=== PATIENT | female | born 2000 | race Caucasian/White ===

== ENCOUNTER 2022-02-06 12:49 | Outpatient (REF) | payer OTHER, MEDICAID, SELFPAY ==
[2022-02-07 12:51] LABS: Influenza A PCR POSITIVE (Negative); Influenza B PCR NEGATIVE (Negative); Resp Syncy Virus RNA Qual PCR NEGATIVE (Negative); SARS COV2 PCR INHOUSE NEGATIVE (Negative)
== END 2022-02-06 12:50 | disposition home or self-care (01) ==
LOC: HO.LAB 12:49
PROVIDERS: Visit Provider Family Medicine
DX: Z20.822 Contact with and (suspected) exposure to COVID-19 (principal); B34.9 Viral infection, unspecified
CPT/HCPCS: 0241U

== ENCOUNTER 2023-05-25 10:00 | Outpatient (RCR) | payer OTHER, MEDICAID, SELFPAY ==
--- NOTE | 2023-05-16 12:47 | MHC.PT.EP ---
[facility] [place] Office [place] Office [place] Office [address] Amy Romero [address] [phone] F: [phone] F: [phone] F: [phone] F: [phone] Physical Therapy Plan of Care Date of Evaluation: Date of Surgery: Diagnosis: LBP (MD Dx) Due to core weakness/instability after giving 04/28 Assessment: Patient is a 23 y.o. female who is referred to PT by Dr. Maria C Isaac MD with Dx of low back pain. Upon assessment her LBP appears due to abdominal weakness and instability after giving 1 year ago. Patient impairments include poor posture, poor body mechanics with squat and lifting, painful ROM, hip and core/abdominal weakness. 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 Patient will benefit from skilled PT to address aforementioned impairments and functional limitations to meet established goals. Frequency and Duration: The patient will be seen 1x/week for 4 weeks Short Term Goals: 2 weeks Patient demonstrates consistency and independence with HEP to self manage symptoms. Patient presents without slouched sitting, to reduce low back strain. Alf Goals: 4 weeks Patient presents with increased glute med strength 4+/5 to be able to stand for shift at work without LBP. Patient presents with increased TA strength 5/5 to be able to lift/carry daughter without LBP. Treatment Plan: Modalities to reduce pain, spasms and effusion. Manual therapy to restore motion and function. Therapeutic exercise to improve strength and flexibility. Neuromuscular re-education for posture and balance. Therapeutic activities to return to functional activities of daily living. Electronically signed by: César Kearney, PT, DPT Please sign and return to therapist. Thank you for your referral.
--- NOTE | 2023-07-17 13:04 | MHC.PT.DC ---
[facility] [place] Office [place] Office [place] Office [address] Amy Romero [address] [phone] F: [phone] F: [phone] F: [phone] F: [phone] Physical Therapy Discharge Report Diagnosis: LBP (MD [place]) Due to core weakness/instability after giving 04/28 Date of Surgery: Date of Evaluation: 05/16/23 Date of Discharge: 07/17/23 Treatments to Date: 2 Cancellations to Date: 0 No Shows to Date: Discharge Status: Visit Non-compliance Discharge Summary: Patient was only treated for 2 PT sessions and then she ceased attending PT on her own accord. Difficulty determining effectiveness on PT condition due to limited session. She is discharged from PT at this time. Electronically signed by: César Kearney, PT, DPT Please sign and return to therapist. Thank you for your referral.
== END 2023-07-17 13:06 | disposition home or self-care (01) ==
LOC: HO.PT 10:00
PROVIDERS: PCP Internal Medicine; Visit Provider Nurse Practitioner Family
DX: M54.50 Low back pain, unspecified (principal)
CPT/HCPCS: 97110; 97140; 97161

== ENCOUNTER 2024-04-09 11:10 | Outpatient (AMB) | payer OTHER, MEDICAID, SELFPAY ==
[2024-04-09 11:11] VITALS: PULSE 57; O2SAT 98; BMI 24.3
--- NOTE | 2024-04-09 11:11 | A.OFFPC_ITS ---
Vital Signs 04/09/24 11:11 Height 5 ft 5 in Weight 146 lb BMI 24.3 Blood Pressure Location Lt brachial Position Sitting Pulse 57 Pulse Source Pulse Oximeter Pulse Oximetry (%) 98 Oxygen Delivery Method Room Air Intake Visit Reasons: pe Occupational Health Nursing Director Required: No Accompanied by: Self / Same As Patient Allergies Seasonal Allergies Allergy (Severe, Verified 04/09/24 11:21) watery eyes, sneezing Medication List - Last Reconciled 04/09/24 by Charu Dnun MD loratadine (Allergy Relief (loratadine)) 10 mg PO DAILY PRN norgestimate-ethinyl estradiol 0.18/0.215/0.25 mg-35 mcg (28) (Tri-Sprintec (28)) 1 tab PO DAILY Tobacco use date assessed: 04/09/24 Dental Screening Dental Screen Date: 04/09/24 Did you have a dental visit in the last 12 months?: Yes Did you have a dental problem in the last 6 months where you did not have access to dental care?: No Was dental information given to patient?: Patient has dentist HPI HPI Comments History of Present Illness Details This is a 24-year-old female with mild recurrent major depression that comes for her physical exam. Depression is follow by counseling and has improved. Pap smears are up-to-date. No acute complaints. [facility] Medical History (Updated 04/09/24 @ 11:31 by Charu Dunn MD) Allergic rhinitis Surgical History No pertinent past surgical history Family History Mother Heart problem Father No problems noted. Sister Asthma Daughter No problems noted. Social History (Updated 04/09/24 @ 11:25 by Charu Dunn MD) Housing: Apartment Alcohol intake: current Alcohol intake frequency: a few times a week Alcohol type: other Patient Tobacco Use Status: Never used Tobacco e-Cigarette/Vaping Use: Never Used Second Hand Smoke Exposure: No service: No Current occupational status: employed Current occupational exposures/hazards: No Cognitive needs: No Hearing needs: No Vision needs: Yes Questionnaire PHQ-9 Over the last 2 weeks, how often have you been bothered by any of the following problems? 1. Little interest or pleasure in doing things: several days 2. Feeling down, depressed, or hopeless: several days 3. Trouble falling or staying asleep, or sleeping too much: not at all 4. Feeling tired or having little energy: several days 5. Poor appetite or overeating: several days 6. Feeling bad about yourself - or that you are a failure or have let yourself or your family down: several days 7. Trouble concentrating on things, such as reading the newspaper or watching television: not at all 8. Moving or speaking so slowly that other people could have noticed. Or the opposite - being so fidgety or restless that you have been moving around a lot more than usual: not at all 9. Thoughts that you would be better off or of hurting yourself in some way: not at all Total score: 5 Depression Screening Interpretation: Positive Depression Screening Follow-up: Existing condition, In treatment, Community Mental Health Worker F/U and Follow- up Visit Requested Depression Screening Done: Yes 13066 - PHQ-9 Billing: Yes Source: Developed by Drs. Luan Kim, Kim Figueroa, Juan De La Cruz and colleagues, with an educational artem from [employer]. Thrive Questionnaire Date Thrive assessed: 04/09/24 I am a: Patient What is your living situation today?: I have a steady place to live Within the past 12 months, did the food you bought not last and you didn't have the money to get more?: Never true Within the past 12 months, did you worry whether your food would run out before you got money to buy more?: Never true Do you have trouble paying for medicines?: No Do you have trouble getting transportation to medical appointments?: No Do you have trouble paying your heating and electricity bill?: No Do you have trouble taking care of your child, family member or friend?: No Do you have trouble with day-to-day activities such as bathing, preparing meals, shopping, managing finances, etc.?: No Are you currently unemployed and looking for a job?: No Are you interested in more education?: No Currently or been in a relationship where the following occur: No concerns reported THRIVE Score: 0 AUDIT C Alcohol Use Questionnaire (AUDIT-C) 1. How often do you have a drink containing alcohol?: 2-3 times a week 2. How many drinks containing alcohol do you have on a typical day when you are drinking?: 3 or 4 3. How often do you have six or more drinks on one occasion?: Never Total Score: 4 GLENN-7 AMB Questionnaire GLENN-7 Date GLENN - 7 assessed: 04/09/24 Feeling nervous, anxious, or on edge: 0 = Not at all Not being able to stop or control worryin = Several days Worrying too much about different things: 1 = Several days Trouble relaxin = Not at all Being so restless that it is hard to sit still: 0 = Not at all Becoming easily annoyed or irritable: 0 = Not at all Feeling afraid as if something awful might happen: 0 = Not at all Total GLENN-7 score (0-4 normal; 5-9 mild; 10-14 moderate; 15-21 severe): 2 Source: Developed by Drs. Luan Kim, Kim Figueroa, Juan De La Cruz and colleagues, with an educational artem from [employer]. GLENN-7 Assessment Billing GLENN-7 Assessment Tool: GLENN-7 Assessment 19769 Review of Systems Const All systems reviewed & are unremarkable except as noted in HPI and below Card Denies chest pain at rest, Denies chest pain with activity, Denies edema, Denies irregular heart rhythm, Denies claudication, Denies dyspnea, Denies dyspnea on exertion, Denies orthopnea, Denies paroxysmal nocturnal dyspnea and Denies slow heart rate Resp Denies cough, Denies dyspnea and Denies dyspnea on exertion GI Denies abdominal pain, Denies change in bowel habits, Denies excessive flatus, Denies nausea and Denies vomiting Denies urinary incontinence, Denies urinary hesitancy and Denies urinary urgency Musc Denies abnormal gait, Denies atrophy, Denies deformity and Denies limited range of motion Skin/Breast Denies bleeding lesions, Denies changing lesions and Denies rash Neuro Denies abnormal gait, Denies behavioral changes and Denies lack of coordination Psych Denies behavioral changes Endo Denies cold intolerance Physical exam (Primary Care) Vital Signs: Last Vital Signs Pulse 57 04/09/24 11:11 Pulse Ox 98 04/09/24 11:11 Oxygen Delivery Method Room Air 04/09/24 11:11 BMI result Body Mass Index 24.3 Tobacco/Smoking Status: Tobacco use Status Tobacco use date assessed 04/09/24 04/09/24 11:17 Patient Tobacco Use Status Never used Tobacco 04/09/24 11:17 e-Cigarette/Vaping Use Never Used 04/09/24 11:17 PHQ-9: PHQ-9 Score PHQ-9: Total score 5 04/09/24 11:17 Depression Screening Interpretation: Positive Depression Screening Follow-up: Existing condition, In treatment, Community Mental Health Worker F/U and Follow- up Visit Requested Thrive Assessment: Date of Thrive Assessment Date Thrive assessed 04/09/24 04/09/24 11:17 Currently or been in a relationship where the following occur: No concerns reported HENMT Head: Yes normal to inspection, Yes normocephalic and Yes atraumatic Ears: external ears normal Eyes General: appearance normal, both eyes and all related structures Eyelids: Yes eyelids normal Conjunctivae: conjunctivae normal Neck Neck: Yes normal visual inspection and Yes supple Resp Effort & Inspection: normal respiratory effort Auscultation: clear to auscultation bilaterally Cardio Jugular venous distension: no JVD Rate: regular rate Rhythm: regular rhythm Heart sounds: S1 normal heart sound present and S2 normal heart sound present GI Inspection: Yes normal to inspection Palpation (GI): Soft to palpation and nontender Auscultation: normal bowel sounds Skin General skin exam: no rashes or lesions noted Neuro General: no focal motor deficits Extrem General: Yes full ROM Psych Appearance: grossly normal Assessment and Plan Assessment & Plan (1) Physical exam: Code(s): Z00.00 - Encounter for general adult medical examination without abnormal findings Plan: Repeat in a year. (2) Mild recurrent major depression: Code(s): F33.0 - Major depressive disorder, recurrent, mild Plan: Continue counseling. Orders: Orders Comprehensive [place]. Panel Fast Today Z00.00 - Encounter for general adult medical examination without abnormal findings Lipid Panel Today Z00.00 - Encounter for general adult medical examination without abnormal findings Coding Level of Care Code Est Pt Prev Care 18-39y(86133) Diagnoses Physical exam Z00.00 Mild recurrent major depression F33.0 Additional Codes GLENN-7 Assessment Billing - GLENN-7 Assessment Tool: GLENN-7 Assessment 99271 ([id number]) Time Spent (min) 30
== END 2024-04-09 11:31 | disposition home or self-care (01) ==
PROVIDERS: PCP Internal Medicine; Visit Provider Internal Medicine
DX: Z00.00 Encounter for general adult medical examination without abnormal findings (principal); F33.0 Major depressive disorder, recurrent, mild
CPT/HCPCS: 99395

== ENCOUNTER 2025-04-15 14:23 | Outpatient (AMB) | payer BC, SELFPAY ==
--- NOTE | 2025-04-15 14:25 | MHC.PC.OV ---
Vital Signs 04/15/25 14:27 Height 5 ft 5 in Weight 155 lb BMI 25.8 BP 110/62 Blood Pressure Location Lt brachial Position Sitting Intake Visit Reasons: annual exam Intake Note: Patient here for an annual physical exam Paper Reeler Required: No Accompanied by: Self / Same As Patient Allergies Seasonal Allergies Allergy (Severe, Verified 04/15/25 14:45) watery eyes, sneezing Medication List - Last Reconciled 04/15/25 by Charu Dunn MD loratadine (Allergy Relief (loratadine)) 10 mg PO DAILY PRN norgestimate-ethinyl estradiol 0.18/0.215/0.25 mg-0.035mg (28) (Tri-Sprintec (28)) 1 tab PO DAILY Tobacco use date assessed: 04/15/25 Dental Screening Dental Screen Date: 04/15/25 Did you have a dental visit in the last 12 months?: No Did you have a dental problem in the last 6 months where you did not have access to dental care?: No Was dental information given to patient?: Patient has dentist HPI HPI Comments History of Present Illness Details This is a 25-year-old female that comes for her physical exam. Pap smear done this year. She deliver her 2nd baby in December and denies any problems to in such as gestational diabetes. Denies any chest pain or shortness on breath. No change in bowel or bladder habits. Tdap vaccine done this year. [facility] Medical History (Updated 04/15/25 @ 14:54 by hCaru Dunn MD) Mild recurrent major depression Allergic rhinitis Surgical History No pertinent past surgical history Family History Mother Heart problem Father No problems noted. Sister Asthma Daughter No problems noted. Social History Housing: Apartment Alcohol intake: current Alcohol intake frequency: a few times a week Alcohol type: other Patient Tobacco Use Status: Never used Tobacco e-Cigarette/Vaping Use: Never Used Second Hand Smoke Exposure: No service: No Current occupational status: employed Current occupational exposures/hazards: No Cognitive needs: No Hearing needs: No Vision needs: Yes Questionnaire PHQ-9 Over the last 2 weeks, how often have you been bothered by any of the following problems? 1. Little interest or pleasure in doing things: not at all 2. Feeling down, depressed, or hopeless: not at all 3. Trouble falling or staying asleep, or sleeping too much: not at all 4. Feeling tired or having little energy: not at all 5. Poor appetite or overeating: not at all 6. Feeling bad about yourself - or that you are a failure or have let yourself or your family down: not at all 7. Trouble concentrating on things, such as reading the newspaper or watching television: not at all 8. Moving or speaking so slowly that other people could have noticed. Or the opposite - being so fidgety or restless that you have been moving around a lot more than usual: not at all 9. Thoughts that you would be better off or of hurting yourself in some way: not at all Total score: 0 Depression Screening Interpretation: Negative Depression Screening Done: Yes 02623 - PHQ-9 Billing: Yes Source: Developed by Drs. Luan Kim, Kim Figueroa, Juan De La Cruz and colleagues, with an educational artem from [employer] Thrive Questionnaire Date Thrive assessed: 04/15/25 I am a: Patient What is your living situation today?: I have a steady place to live Within the past 12 months, did the food you bought not last and you didn't have the money to get more?: Sometimes True Within the past 12 months, did you worry whether your food would run out before you got money to buy more?: Sometimes True Do you have trouble paying for medicines?: No Do you have trouble getting transportation to medical appointments?: No Do you have trouble paying your heating and electricity bill?: No Do you have trouble taking care of your child, family member or friend?: No Do you have trouble with day-to-day activities such as bathing, preparing meals, shopping, managing finances, etc.?: No Are you currently unemployed and looking for a job?: No Are you interested in more education?: No Please select the resources that you would like help with: None Currently or been in a relationship where the following occur: No concerns reported THRIVE Score: 2 AUDIT C Alcohol Use Questionnaire (AUDIT-C) 1. How often do you have a drink containing alcohol?: Monthly or less 2. How many drinks containing alcohol do you have on a typical day when you are drinking?: 3 or 4 3. How often do you have six or more drinks on one occasion?: Never Total Score: 2 Score Reviewed/Action Taken: No GLENN-7 AMB Questionnaire GLENN-7 Date GLENN - 7 assessed: 04/15/25 Feeling nervous, anxious, or on edge: 0 = Not at all Not being able to stop or control worryin = Not at all Worrying too much about different things: 0 = Not at all Trouble relaxin = Not at all Being so restless that it is hard to sit still: 0 = Not at all Becoming easily annoyed or irritable: 0 = Not at all Feeling afraid as if something awful might happen: 0 = Not at all Total GLENN-7 score (0-4 normal; 5-9 mild; 10-14 moderate; 15-21 severe): 0 Source: Developed by Drs. Luan Kim, Kim Figueroa, Juan De La Cruz and colleagues, with an educational artem from [employer] GLENN-7 Assessment Billing GLENN-7 Assessment Tool: GLENN-7 Assessment 19045 Review of Systems Const All systems reviewed & are unremarkable except as noted in HPI and below Eyes Reports no additional complaints, Denies change in vision and Denies other visual disturbances Card Denies chest pain at rest, Denies chest pain with activity, Denies edema, Denies irregular heart rhythm, Denies claudication, Denies dyspnea, Denies dyspnea on exertion, Denies orthopnea, Denies paroxysmal nocturnal dyspnea and Denies slow heart rate Resp Denies cough, Denies dyspnea and Denies dyspnea on exertion GI Denies abdominal pain, Denies change in bowel habits, Denies excessive flatus, Denies nausea and Denies vomiting Denies urinary incontinence, Denies urinary hesitancy and Denies urinary urgency Musc Denies atrophy, Denies deformity and Denies limited range of motion Skin/Breast Denies bleeding lesions, Denies changing lesions and Denies rash Physical exam (Primary Care) Vital Signs: Last Vital Signs BP 110/62 04/15/25 14:27 BMI result Body Mass Index 25.8 Tobacco/Smoking Status: Tobacco use Status Tobacco use date assessed 04/15/25 04/15/25 14:30 Patient Tobacco Use Status Never used Tobacco 04/15/25 14:30 e-Cigarette/Vaping Use Never Used 04/15/25 14:30 PHQ-9: PHQ-9 Score PHQ-9: Total score 0 04/15/25 14:30 Depression Screening Interpretation: Negative Thrive Assessment: Date of Thrive Assessment Date Thrive assessed 04/15/25 04/15/25 14:30 Currently or been in a relationship where the following occur: No concerns reported HENMT Head: Yes normal to inspection, Yes normocephalic and Yes atraumatic Ears: external ears normal Eyes General: appearance normal, both eyes and all related structures Eyelids: Yes eyelids normal Conjunctivae: conjunctivae normal Neck Neck: Yes normal visual inspection and Yes supple Resp Effort & Inspection: normal respiratory effort Auscultation: clear to auscultation bilaterally Cardio Jugular venous distension: no JVD Rate: regular rate Rhythm: regular rhythm Heart sounds: S1 normal heart sound present and S2 normal heart sound present GI Inspection: Yes normal to inspection Palpation (GI): Soft to palpation and nontender Auscultation: normal bowel sounds Skin General skin exam: no rashes or lesions noted Neuro General: no focal motor deficits Extrem General: Yes full ROM Psych Appearance: grossly normal Coding Level of Care Code Est Pt Prev Care 18-39y(72192) Diagnoses Physical exam Z00.00 Additional Codes PHQ-9 - 83918 - PHQ-9 Billing: Yes ([id number]) GLENN-7 Assessment Billing - GLENN-7 Assessment Tool: GLENN-7 Assessment 82650 ([id number]) Time Spent (min) 30 Assessment & Plan Assessment & Plan (1) Physical exam: Code(s): Z00.00 - Encounter for general adult medical examination without abnormal findings Category: Medical Plan Repeat physical exam in a year. Next Tdap vaccine should be 2034. Next Pap smear should be no earlier than 3 years. Labs ordered. Orders: Orders Lipid Panel Today Z00.00 - Encounter for general adult medical examination without abnormal findings Comprehensive [place]. Panel Fast Today Z00.00 - Encounter for general adult medical examination without abnormal findings
[2025-04-15 14:27] VITALS: BP 110/62; BMI 25.8
--- OUTSIDE RECORDS SUMMARY | 2025-04-15 14:58 | XMS_ITS | Clinical Summary ---
Author Organization [facility] Address [address] [place] [phone] Phone Care Team Providers Care Audit Spec Name Role Phone Unavailable Primary Care Provider Unavailabl e Allergies Active Allergy Reactions Criticality Noted Date Comments Food Peanuts & pork Medications EPINEPHrine 0.3 MG/0.3ML injection syringe USE DIRECTED PRF SEVERE ALLERGIC REACTION 1 8 Active MEDROXYPROGESTERO NE 150 MG/ML injectionIndicati ons:Encounter for Depo-Provera contraception ADMINISTER 1 ML(150 MG) IN THE MUSCLE EVERY 3 MONTHS 1 mL 9 Active loratadine (CLARITIN) 10 MG tabletIndications :Seasonal allergies Take 1 tablet (10 mg total) by mouth daily. 30 tablet 3 9 Active Active Problems Problem Noted Date Diagnosed Date Allergic rhinitis 01/27/2010 Overview (07/04/2018): Dr Beltran. Allergic to ragweed, tree pollen, grass pollen, dust mites & animal dander. Getting allergy shots in 2018 Assessment & Plan (07/04/2018 10:32 AM EDT): Dr Beltran treated Pt with Pred 02/2018 for 7 days Last seen by Dr Beltran in February Goes weekly for allergy shots No longer on singulair or flonase - not clear why No notes from continuous improvement specialist Immunizations Immunization Administration Dates Next Due DTaP 5 04/15/2003, 1,1999,08/02,1999 HPV, Quadrivalent 11/15/2010,07/12/2010,05/06/20 10 Hep A, ped/adol 04/21/2014,04/21/2011 Hep B, ped/adol 01/03/2000,1999,1999 Hib (PRP-T) 07/12/2000, 9,1999,05/30 IPV 04/15/2003, 0,1999,05/30 Influenza Split 08/05/2013 Influenza, injectable, quadr ivalent, preservative free 06/20/2018,07/12/2017 MMR 04/15/2003,04/11/2000 Meningococcal Conj (Menactra) MCV4P 05/08/2016,0 05/06/2010 Pneumococcal Conjugate 10/11/2000,07/12/2000 Tdap 05/06/2010 Varicella 05/04/2008,04/11/2000 Family History Medical History Relation Name Comments ADD / ADHD Brother Autism Brother Kidney disease Mother Valvular heart disease Mother Asthma Sister Relation Name Status Comments Brother Alive Brother: ADD/AD HD, Autism, Alive and well Father Alive Father: Alive a nd well Half-Brother Alive Half brother (M ): Alive and well Half-Sister Alive Half sister (M) : Alive and well Maternal Grandfather Materna l grandfather: Sudden /CT under 55, Depression, Myocardial infarction, Hypertension, Deafness, Seizure disorder Maternal Grandmother Materna l aunt: Deafness Mother Mother: hydrone phrosis, Valvular heart disease Other Family history of Diabetes mellitus Sister Sister: Asthma Social History Tobacco Use Types Packs/Day Years Used Date Smoking Tobacco: Never Smokeless Tobacco: Never Comments:Never smoker Alcohol Use Standard Drinks/Week Comments No 0 (1 standard drink = 0.6 oz pur e alcohol) Comments No Sex and Gender Information Value Date Recorded Sex Assigned at Not on file Legal Sex Female 5:10 PM EDT Gender Identity Not on file Sexual Orientation Not on file Last Filed Vital Signs Vital Sign Reading Time Taken Comments Blood Pressure 90/70 02/13/2019 3:49 PM EDT Pulse 97 11/27/2018 10:56 AM EST Temperature 37 C (98.6 F) 02/13/2019 3:49 PM EDT Respiratory Rate - - Oxygen Saturation 99% 08/05/2013 12: 00 AM EDT Inhaled Oxygen Concentration - - Weight 61.6 kg (135 lb 12.8 oz) 02/13/2019 3:49 PM EDT Height 163.8 cm (5' 4.5 ) 07/04/2018 10 :14 AM EDT Body Mass Index 22.95 07/04/2018 10:14 AM EDT Plan of Treatment Health Maintenance Due Date Last Done Comments DTaP,Tdap,and Td Vaccines (7 - Td or Tdap) 05/06/2020 05/06/2010, 04/15/2003, 10/11/2000, Additional history exists COVID-19 Vaccine ( season) 2024 Influenza Vaccines (#1) 2025 06/20/20 18, 07/12/2017, 08/05/2013 Hepatitis B Vaccines Completed 01/03/2000, 1999, 1999 HIB Vaccines Completed 07/12/2000, 09/08, 1999, Additional history exists Pneumococcal Vaccine Completed 10/11/2000, 07/12/20 00 IPV Vaccines Completed 04/15/2003, 02/2000, 1999, Additional history exists MMR Vaccines Completed 04/15/2003, 04/11/2000 Varicella Vaccines Completed 05/04/2008, 04/11/2000 HPV Vaccines Completed 11/15/2010, 02/2010, 05/06/2010 Hepatitis A Vaccines Completed 04/21/2014, 04/21/20 11 Meningococcal Vaccine Completed 05/08/2016, 010 Men B Vaccine Aged Out No longer elig ible based on patient's age to complete this topic Procedures * Due to [place] [employer] law, this organization might not be sharing sensitive test results. Procedure Name Priority Date/Time Associated Diagnosis Comments CHLAMYDIA AND GONORRHEA, AMPLIFIED Routine 02/13/2019 4:45 PM EDT Encounter for Depo-Provera contraception from Last 3 Months or Most Recently Relevant to Health Maintenance Results * Due to [place] [employer] law, this organization might not be sharing sensitive test results. * Chlamydia and Gonorrhoea, Amplified (02/13/2019 4:45 PM EDT) Chlamydia Trachomatis, DNA Probe NEGATIVE (NEG) [facility] Comment: No Chlamydia Trachomatis RNA detected in this patient's sample (REFERENCE RANGE/NORMAL VALUE: NOT DETECTED) Note: This test uses premium note interest calculator clerk- mediated amplification method to detect rRNA from C. Trachomatis URINE GC AMP PROBE NEGATIVE (NEG) [facility] Comment: No Neisseria Gonorrhoeae RNA detected in this patient's sample (REFERENCE RANGE/NORMAL VALUE: NOT DETECTED) NOTE: This test uses premium note interest calculator clerk-mediated amplification method to detect rRNA from N.Gonorrhoeae. A negative result does not preclude infection. In the case of a negative urine result, testing of an endocervical(female) or urethral (male) specimen is recommended if there is high clinical suspicion of infection. Due to very high sensitivity of Nucleic Acid Amplification Test, false positive results may occur. Therefore, specimen handling is extremely important. In patients in whom the disease is unlikely, additional sample for testing should be considered after an initial positive result. The performance characteristics of this test have not been evaluated in children. The Aptima Combo2 assay is not intended for the evaluation of suspected sexual abuse or for other medico-legal indications. The ordering provider should assess if the patient had consensual sex without risk of sexual abuse. Consult the [facility] if needed. Contact phone number . Therapeutic failure or success cannot be determined with the Aptima Combo2 assay since nucleic acid may persist following appropriate antimicrobial therapy. The Centers for Disease Control and Prevention (CDC) recommends confirmatory retesting using culture or a different nucleic acid amplification test when positive results occur, if indicated. Testing performed or reported by [facility], a Service of [facility], [facility] [place] [address] Urine 02/13/2019 4:45 PM EDT 02/13/2019 9:55 PM EDT us Yomaira Best MD LAB MICROBIOLOGY - GENERAL ORDER FATMATA Final Result [facility] from Last 3 Months or Most Recently Relevant to Health Maintenance Insurance [facility] PPO
== END 2025-04-15 14:57 | disposition home or self-care (01) ==
LOC: HO.HMCH 14:24
PROVIDERS: PCP Internal Medicine; Visit Provider Internal Medicine
DX: Z00.00 Encounter for general adult medical examination without abnormal findings (principal)

== ENCOUNTER → 2025-04-15 14:23 | Outpatient (BNVA) | payer BC, SELFPAY | PROVIDERS: PCP Internal Medicine; Visit Provider Internal Medicine | DX: Z00.00 Encounter for general adult medical examination without abnormal findings (principal); Z13.31 Encounter for screening for depression; Z13.30 Encounter for screening examination for mental health and behavioral disorders, unspecified | CPT/HCPCS: 96127 ==